=== PATIENT | female | born 1965 | race Caucasian/White ===

== ENCOUNTER 2017-02-08 11:06 | Emergency (ER) | payer MEDICAID ==
[2017-02-08 11:37] VITALS: TEMP 98.6; O2SAT 94
--- NOTE | 2017-02-08 12:31 | EDPHY ---
H & P Time Seen by Provider: 02/08/17 12:01 HPI/ROS: CHIEF COMPLAINT: Right lateral abdominal pain HISTORY OF PRESENT ILLNESS: Patient is a 51-year-old female with a history of cholecystectomy who presents to the emergency department with right lateral abdominal pain. Her pain is moderate to severe. It is "sharp and stabbing." Pain has progressively worsened over the past week. She describes it as worse with movement, twisting or bearing down for bowel movement. Her pain does not radiate. She has noticed no rash. No fevers or chills. No dysuria or frequency. No nausea or vomiting. REVIEW OF SYSTEMS: My complete review of systems is negative except as mentioned in the HPI. Past Medical/Surgical History: Includes GERD, hypertension, hypothyroidism, "fatty liver", anxiety, depression Past surgical history: Includes cholecystectomy, Social history: The patient smokes and uses THC will. She denies alcohol use. The patient is on extended Depo Smoking Status: Current every day smoker Physical Exam: Vitals noted GENERAL: Well-appearing, in no acute distress, alert. HEENT: Eyes normal to inspection, normal pharynx, no signs of dehydration. NECK: No thyromegaly, no lymphadenopathy, supple. RESPIRATORY: Clear to auscultation bilaterally, no rales, rhonchi or wheezing. CVS: Regular rate and rhythm, no rubs, murmurs, or gallops. ABDOMEN: Soft, nondistended, no organomegaly. The patient has a right lateral abdominal wall tenderness to palpation. On exam when she sits up it appears to be worse with movement. No visible rash on the abdomen. BACK: Normal to inspection, no CVA tenderness. SKIN: Normal color, no rash, warm, dry. No pallor. EXTREMITIES: No pedal edema, no calf tenderness, no Homans sign or cords, no joint swelling. NEURO/PSYCH: Alert and oriented x3, normal mood and affect, normal motor sensory exam. Constitutional: Initial Vital Signs Temperature (C) 37 C 02/08/17 11:34 Heart Rate 104 H 02/08/17 11:34 Respiratory Rate 16 02/08/17 11:34 Blood Pressure 138/85 H 02/08/17 11:34 O2 Sat (%) 94 02/08/17 11:34 O2 Delivery Mode Room Air Allergies/Adverse Reactions: codeine Allergy (Verified 02/05/15 21:00) etodolac [From Lodine] Allergy (Verified 11/29/14 21:00) Home Medications: Medication Instructions Recorded Benazepril HCl 11/29/14 Citalopram Hydrobromide [Celexa] 11/29/14 Clonazepam 11/29/14 Esomeprazole Magnesium [Nexium] 5 mg PO 11/29/14 Hydrochlorothiazide [HCTZ (RX)] 11/29/14 Levothyroxine [Synthroid 25 mcg 11/29/14 (*)] oxyCODONE/APAP 5/325 [Percocet 1 - 2 tab PO Q4H PRN #20 tab 11/29/14 5/325 (RX)] Cyclobenzaprine [Flexeril] 10 mg PO TID #15 tab 02/08/17 Dicyclomine 02/08/17 Esomeprazole Sodium 02/08/17 oxyCODONE/APAP 5/325 [Percocet 1 - 2 tab PO Q4PRN PRN #11 tab 02/08/17 5/325 (*)] Medical Decision Making - Diagnostics Imaging Results: Imaging Impressions Abdomen CT 02/08/17 12:32 Impression: 1. Status post cholecystectomy. 2. Hepatomegaly with diffuse steatosis. 3. Nonobstructive right nephrolithiasis. 4. Normal appearance of the appendix. 5. Hypodense fullness of the cervix. Correlation with a Pap smear is suggested, and if indicated, sonography may also be of benefit. Findings and recommendations were discussed with PATRICIA NICHOLE MD at 13:51 , on 02/08/2017. ED Course/Re-evaluation: In the emergency department I discussed possible etiologies with the patient. IV was placed. Laboratory studies were ordered. Due the patient's significant tenderness on exam is CT scan was ordered. Patient did have questions regarding appendicitis. Patient was given morphine 6 mg IV for pain control. Patient has an allergy to Etolodac. Patient would prefer not to receive morphine. I discussed allergy with Etolodac. However, the patient states that she has had IV ibuprofen previously. She consents to taking Toradol. I reviewed the patient's laboratory studies. Of note she had a mildly elevated white count of 10.22. Her creatinine chemistry panel unremarkable. Her LFTs were normal except for mildly elevated alk-phos of 134. Her UA was negative. 1350: Abdomen pelvis CT. Please refer the dictated report by Dr. Cisco Khan. There is a normal appearing appendix. The gallbladder is removed. There is no duct dilatation. No other signs of abnormality. No abdominal wall abnormality. Patient has a fullness of her cervix. The radiologist recommends a Pap smear. I rechecked the patient. Her pain had improved with the medication. I discussed the findings of her laboratory studies and CT imaging. I discussed the plan with the patient. She will follow up with her mud jack operator. She was given both pain medication and muscle relaxer. She will return with worsening symptoms. Differential Diagnosis: My differential includes but is not limited to appendicitis, small-bowel obstruction, perforation, ovarian cyst, ovarian torsion, zoster, musculoskeletal strain, urinary tract infection, pyelonephritis Patient's symptoms seem to be consistent with muscular oral wall discomfort. She will be given pain medication and muscle relaxer. Her imaging did not reveal the reason for her discomfort. - Data Points Laboratory Results: Laboratory Results 02/08/17 11:45 02/08/17 11:45 02/08/17 02/08/17 02/08/17 11:45 11:45 11:45 WBC RBC Hgb Hct MCV MCH MCHC RDW Plt Count MPV Neut % (Auto) Lymph % (Auto) [place] % (Auto) Eos % (Auto) Baso % (Auto) Nucleat RBC Rel Count Absolute Neuts (auto) Absolute Lymphs (auto) Absolute Monos (auto) Absolute Eos (auto) Absolute Basos (auto) Absolute Nucleated RBC Immature Gran % Immature Gran # PT INR APTT Sodium 139 mEq/L mEq/L (134-144) Potassium 4.6 mEq/L mEq/L (3.5-5.2) Chloride 105 mEq/L mEq/L (97-110) Carbon Dioxide 24 mEq/l mEq/l (22-31) Anion Gap 10 mEq/L mEq/L (8-16) BUN 14 mg/dL mg/dL (7-23) Creatinine 0.7 mg/dL mg/dL (0.6-1.0) Estimated GFR > 60 Glucose 84 mg/dL mg/dL (70-100) Calcium 9.8 mg/dL mg/dL (8.5-10.4) Total Bilirubin 0.6 mg/dL mg/dL (0.1-1.4) Conjugated Bilirubin 0.5 mg/dL mg/dL (0.0-0.5) Unconjugated Bilirubin 0.1 mg/dL mg/dL (0.0-1.1) AST 47 IU/L H IU/L (14-46) ALT 51 IU/L IU/L (9-52) Alkaline Phosphatase 134 IU/L H IU/L (38-126) Total Protein 7.4 g/dL g/dL (6.3-8.2) Albumin 4.3 g/dL g/dL (3.5-5.0) Lipase 125.0 IU/L IU/L (23-300) Beta HCG, Qual NEGATIVE Urine Color YELLOW Urine Appearance CLEAR Urine pH 8.0 H (5.0-7.5) Ur Specific [place] 1.008 (1.002-1.030) Urine Protein NEGATIVE (NEGATIVE) Urine Ketones NEGATIVE (NEGATIVE) Urine Blood NEGATIVE (NEGATIVE) Urine Nitrate NEGATIVE (NEGATIVE) Urine Bilirubin NEGATIVE (NEGATIVE) Urine Urobilinogen NEGATIVE EU EU (0.2-1.0) Ur Leukocyte Esterase NEGATIVE (NEGATIVE) Ur Culture Indicated? NOT INDICATED (NI) Urine Glucose NEGATIVE (NEGATIVE) 02/08/17 02/08/17 11:45 11:45 WBC 10.22 10^3/uL H 10^3/uL (3.80-9.50) RBC 5.48 10^6/uL H 10^6/uL (4.18-5.33) Hgb 15.5 g/dL g/dL (12.6-16.3) Hct 45.2 % % (38.0-47.0) MCV 82.5 fL fL (81.5-99.8) MCH 28.3 pg pg (27.9-34.1) MCHC 34.3 g/dL g/dL (32.4-36.7) RDW 15.6 % H % (11.5-15.2) Plt Count 337 10^3/uL 10^3/uL (150-400) MPV 10.3 fL fL (8.7-11.7) Neut % (Auto) 64.9 % % (39.3-74.2) Lymph % (Auto) 24.9 % % (15.0-45.0) [place] % (Auto) 7.8 % % (4.5-13.0) Eos % (Auto) 1.4 % % (0.6-7.6) Baso % (Auto) 0.5 % % (0.3-1.7) Nucleat RBC Rel Count 0.0 % % (0.0-0.2) Absolute Neuts (auto) 6.64 10^3/uL H 10^3/uL (1.70-6.50) Absolute Lymphs (auto) 2.54 10^3/uL 10^3/uL (1.00-3.00) Absolute Monos (auto) 0.80 10^3/uL 10^3/uL (0.30-0.80) Absolute Eos (auto) 0.14 10^3/uL 10^3/uL (0.03-0.40) Absolute Basos (auto) 0.05 10^3/uL 10^3/uL (0.02-0.10) Absolute Nucleated RBC 0.00 10^3/uL 10^3/uL (0-0.01) Immature Gran % 0.5 % % (0.0-1.1) Immature Gran # 0.05 10^3/uL 10^3/uL (0.00-0.10) PT 12.7 SEC SEC (12.0-15.0) INR 0.96 (0.83-1.16) APTT 27.5 SEC SEC (23.0-38.0) Sodium Potassium Chloride Carbon Dioxide Anion Gap BUN Creatinine Estimated GFR Glucose Calcium Total Bilirubin Conjugated Bilirubin Unconjugated Bilirubin AST ALT Alkaline Phosphatase Total Protein Albumin Lipase Beta HCG, Qual Urine Color Urine Appearance Urine pH Ur Specific [place] Urine Protein Urine Ketones Urine Blood Urine Nitrate Urine Bilirubin Urine Urobilinogen Ur Leukocyte Esterase Ur Culture Indicated? Urine Glucose Medications Given: Discontinued Medications Sodium Chloride (Ns) 500 mls @ 0 mls/hr IV ONCE ONE PRN Reason: Wide Open Stop: 02/08/17 12:33 Last Admin: 02/08/17 12:56 Dose: 500 mls Ketorolac Tromethamine (Toradol) 30 mg IVP EDNOW ONE Stop: 02/08/17 12:42 Last Admin: 02/08/17 12:56 Dose: 30 mg Morphine Sulfate (Morphine) 6 mg IVP EDNOW ONE Stop: 02/08/17 12:35 Last Admin: 02/08/17 12:55 Dose: Not Given Ondansetron HCl (Zofran) 4 mg IVP EDNOW ONE Stop: 02/08/17 12:35 Last Admin: 02/08/17 12:56 Dose: 4 mg Departure - Departure Disposition: Home, Routine, Self-Care Clinical Impression: Abdominal pain Qualifiers: Abdominal location: unspecified location Qualified Code(s): R10.9 - Unspecified abdominal pain Condition: Good Instructions: Abdominal Pain (ED), Muscle Strain (ED) Additional Instructions: Your CT scan was unremarkable except for cervical fullness. This is not related to pain. You need close follow-up with your mud jack operator to perform a Pap smear and further evaluation. Return with increasing pain, fever, vomiting or any other concerns. Referrals: [facility] [Other] - 5-7 days, call for appt. Britt Landeros DO [Doctor of Osteopathy] - As per Instructions Prescriptions: Cyclobenzaprine [Flexeril] 10 mg PO TID #15 tab oxyCODONE/APAP 5/325 [Percocet 5/325 (*)] 1 - 2 tab PO Q4PRN PRN #11 tab PRN Reason: For Moderate To Severe Pain
[2017-02-08] MEDS ORDERED: NS 500 ML IV ONE (12:32)
[2017-02-08] MEDS ORDERED: ONDANSETRON 4 MG/2 ML VIAL IVP ONE (12:34)
[2017-02-08] MEDS ORDERED: KETOROLAC 30 MG/1 ML SDV IVP ONE (12:41)
[2017-02-08 12:43] LABS: % IMMATURE GRANULYOCYTES 0.5 % (0.0-1.1); ABSOLUTE IMMATURE GRANULOCYTES 0.05 10^3/uL (0.00-0.10); ADD DIFF? NO; ADD MORPH? NO; ADD SCAN? NO; ATYPICAL LYMPHOCYTE FLAG 0 (0-99); FRAGMENT RBC FLAG 0 (0-99); HEMATOCRIT 45.2 % (38.0-47.0); HEMOGLOBIN 15.5 g/dL (12.6-16.3); LEFT SHIFT FLG 0 (0-99); LIPEMIA HEMOLYSIS FLAG 90 (0-99); MEAN CELL HEMOGLOBIN 28.3 pg (27.9-34.1); MEAN CELL HEMOGLOBIN CONCENTR. 34.3 g/dL (32.4-36.7); MEAN CELL VOLUME 82.5 fL (81.5-99.8); MEAN PLATELET VOLUME 10.3 fL (8.7-11.7); PLATELET CLUMPS FLAG 0 (0-99); PLATELET COUNT 337 10^3/uL (150-400); RED BLOOD CELL COUNT 5.48 10^6/uL (4.18-5.33); RED CELL DISTRIBUTION WIDTH 15.6 % (11.5-15.2)
[2017-02-08 12:44] LABS: COLOR YELLOW; LEUKOCYTE ESTERASE,URINE NEGATIVE (NEGATIVE); NITRITE,URINE NEGATIVE (NEGATIVE)
[2017-02-08 12:46] LABS: INR 0.96 (0.83-1.16); PROTIME(PATIENT) 12.7 SEC (12.0-15.0)
[2017-02-08 12:47] LABS: APTT 27.5 SEC (23.0-38.0)
[2017-02-08 12:49] LABS: ALANINE AMINOTRANSFERASE 51 IU/L (9-52); ALBUMIN 4.3 g/dL (3.5-5.0); ALKALINE PHOSPHATASE 134 IU/L (38-126); ANION GAP 10 mEq/L (8-16); ASPARTATE AMINOTRANSFERASE 47 IU/L (14-46); BILIRUBIN,TOTAL 0.6 mg/dL (0.1-1.4); BILIRUBIN-CONJUGATED 0.5 mg/dL (0.0-0.5); BILIRUBIN-UNCONJUGATED 0.1 mg/dL (0.0-1.1); CALCIUM 9.8 mg/dL (8.5-10.4); CARBON DIOXIDE 24 mEq/l (22-31); CHLORIDE 105 mEq/L (97-110); CREATININE 0.7 mg/dL (0.6-1.0); GLOMERULAR FILTRATION RATE > 60; GLUCOSE 84 mg/dL (70-100); POTASSIUM 4.6 mEq/L (3.5-5.2); SODIUM 139 mEq/L (134-144); TOTAL PROTEIN 7.4 g/dL (6.3-8.2)
[2017-02-08] MEDS ORDERED: IOPAMIDOL (ISOVUE-300) 100 ML BTL IV ONE (13:12)
[2017-02-08 14:09] VITALS: BP 129/71; PULSE 82; RESP 20
== END 2017-02-08 14:18 | disposition home or self-care (01) ==
DX: R10.9 Unspecified abdominal pain (principal); I10 Essential (primary) hypertension; F17.200 Nicotine dependence, unspecified, uncomplicated; Z90.49 Acquired absence of other specified parts of digestive tract
CPT/HCPCS: 96374; J1885; J2405; Q9967

== ENCOUNTER → 2017-02-18 | Outpatient (CLI) | payer MEDICAID | LOC: FIMAGING 09:44 | PROVIDERS: ATTEND Midwife | DX: N89.8 Other specified noninflammatory disorders of vagina (principal); N83.201 Unspecified ovarian cyst, right side ==

== ENCOUNTER 2017-08-05 09:11 | Emergency (ER) | payer MEDICAID ==
[2017-08-05] MEDS ORDERED: IPRATROPIUM/ALBUTEROL 3 ML DEYVIAL ONE (09:41)
[2017-08-05] MEDS ORDERED: IPRATROPIUM/ALBUTEROL 3 ML DEYVIAL IH ONE (09:42)
--- NOTE | 2017-08-05 09:44 | EDPHY ---
HPI/HX/ROS/PE/MDM Narrative: CHIEF COMPLAINT: Swollen lymph nodes HPI: The patient is a 52 y/o female complaining of cough for the last 2 weeks and swollen lymph nodes onset this morning. She has a history of bronchitis and has had chest congestion and productive cough with brownish phlegm for the last 1-2 weeks. She saw a PCP at [facility] and was treated with prednisone, though she did not have a chest x-ray at that time. woke up this morning with throat swelling and "hard knots" on the side of her neck. She denies sore throat , fever, vomiting, diarrhea, abdominal pain. REVIEW OF SYSTEMS: Aside from elements discussed in the HPI, a comprehensive 10-point review of systems was reviewed and is negative. PMH: GERD, hypertension, hypothyroidism, anxiety, depression, cholecystectomy, c -section Prior medical records reviewed including ED visit 02/08/17 for abdominal pain. SOCIAL HISTORY: Smoker, PCP: [facility] PHYSICAL EXAM: General:Patient is alert, in no acute distress. ENT:Eyes are normal to inspection. ENT inspection normal. Neck: Bilateral tender cervical lymphadenopathy. Full range of motion. Respiratory:No respiratory distress. Breath sounds diminished bilaterally. Cardiovascular: Regular rate and rhythm. Strong peripheral pulses. Normal cap refill. Abdomen:The abdomen is nontender to palpation. There are no peritoneal signs. Back: Normal to inspection. No tenderness to palpation. Skin: Normal color. No rash. Warm and dry. Extremities: Normal appearance. Full range of motion. Neuro: Oriented x3. Normal motor function. Normal sensory function. ED Course: This is a 52 y/o female who presents with a 2-week history of productive cough complaining of swollen cervical lymph nodes onset this morning. She has diminished breath sounds bilateral and bilateral tender cervical adenopathy on exam. She is afebrile. Plan for IV, labs, chest x-ray, and duo neb. Chest x-ray: bronchitis CT neck: nothing acute 1342: Reassessed patient and discussed work up. She feels improved after the duo neb. She will be discharged home with z-pack and PCP referral. Return precautions give. She is comfortable with this plan. MDM: This patient presents with continued respiratory symptoms despite prednisone therapy, now with cervical lymphadeonapthy, which is odd considering she has no pharyngeal symptoms. CXR negative or pneumonia. CT-neck negative for concerning findings. I will start patient on azithro to be on the safe side. Patient not hypoxic or febrile, and is appropriate for outpatient management. - Data Points Imaging Results: Imaging Impressions Chest X-Ray 08/05/17 09:39 Impression: 1. Bronchitis/airways disease. 2. No definite pneumonia or pulmonary edema. 3. No cardiomegaly. 4. Old posttraumatic deformity distal right clavicular head. Neck CT 08/05/17 11:52 Impression: 1. No evidence of mass or lymphadenopathy within the neck. 2. Mild prominence of the adenoid tonsils bilaterally without focal abnormality. Findings discussed with Masoud Batista MD at 13:39 hour, 08/05/2017. Imaging: Discussed imaging studies w/ form building supervisor Radiologist, I viewed and interpreted images myself Laboratory Results: Laboratory Results 08/05/17 09:50 08/05/17 09:50 08/05/17 08/05/17 09:50 09:50 WBC 18.65 10^3/uL H 10^3/uL (3.80-9.50) RBC 5.37 10^6/uL H 10^6/uL (4.18-5.33) Hgb 15.8 g/dL g/dL (12.6-16.3) Hct 45.4 % % (38.0-47.0) MCV 84.5 fL fL (81.5-99.8) MCH 29.4 pg pg (27.9-34.1) MCHC 34.8 g/dL g/dL (32.4-36.7) RDW 15.8 % H % (11.5-15.2) Plt Count 344 10^3/uL 10^3/uL (150-400) MPV 9.7 fL fL (8.7-11.7) Neut % (Auto) Not Reported Lymph % (Auto) Not Reported [place] % (Auto) Not Reported Eos % (Auto) Not Reported Baso % (Auto) Not Reported Nucleat RBC Rel Count 0.0 % % (0.0-0.2) Absolute Neuts (auto) Not Reported Absolute Lymphs (auto) Not Reported Absolute Monos (auto) Not Reported Absolute Eos (auto) Not Reported Absolute Basos (auto) Not Reported Absolute Nucleated RBC 0.00 10^3/uL 10^3/uL (0-0.01) Immature Gran % Not Reported Seg Neutrophils % 72 % % Lymphocytes % 22 % % Monocytes % 4 % % Eosinophils % 1 % % Basophils % 1 % % Immature Gran # Not Reported Absolute Seg Neuts 13.43 10^/uL H 10^/uL (1.70-6.50) Absolute Lymphocytes 4.10 10^3/uL H 10^3/uL (1.00-3.00) Absolute Monocytes 0.75 10^3/uL 10^3/uL (0.30-0.80) Absolute Eosinophils 0.19 10^3/uL 10^3/uL (0.03-0.40) Absolute Basophils 0.19 10^3/uL H 10^3/uL (0.02-0.10) Platelet Estimate ADEQUATE (ADEQ) Polychromasia 1+ H Sodium 141 mEq/L mEq/L (134-144) Potassium 4.2 mEq/L mEq/L (3.5-5.2) Chloride 107 mEq/L mEq/L (97-110) Carbon Dioxide 22 mEq/l mEq/l (22-31) Anion Gap 12 mEq/L mEq/L (8-16) BUN 16 mg/dL mg/dL (7-23) Creatinine 0.7 mg/dL mg/dL (0.6-1.0) Estimated GFR > 60 Glucose 105 mg/dL H mg/dL (70-100) Calcium 9.9 mg/dL mg/dL (8.5-10.4) Troponin I < 0.012 ng/mL ng/mL (0.000-0.034) Medications Given: Discontinued Medications Albuterol/Ipratropium (Duoneb) 3 ml EDNOW ONE Stop: 08/05/17 09:43 Last Admin: 08/05/17 09:45 Dose: 3 ml General Time Seen by Provider: 08/05/17 09:25 Initial Vital Signs: Initial Vital Signs Temperature (C) 37 C 08/05/17 09:19 Heart Rate 95 08/05/17 09:19 Respiratory Rate 20 08/05/17 09:19 Blood Pressure 125/86 H 08/05/17 09:19 O2 Sat (%) 94 08/05/17 09:19 O2 Delivery Mode Room Air Allergies/Adverse Reactions: codeine Allergy (Verified 08/05/17 09:18) etodolac [From Lodine] Allergy (Verified 08/05/17 09:18) Home Medications: Medication Instructions Recorded Benazepril HCl 11/29/14 Citalopram Hydrobromide [Celexa] 11/29/14 Clonazepam 11/29/14 Esomeprazole Magnesium [Nexium] 5 mg PO 11/29/14 Hydrochlorothiazide [HCTZ (RX)] 11/29/14 Levothyroxine [Synthroid 25 mcg 11/29/14 (*)] Cyclobenzaprine [Flexeril] 10 mg PO TID #15 tab 02/08/17 Dicyclomine 02/08/17 Esomeprazole Sodium 02/08/17 AZITHROMYCIN [Z-PACK] 250 mg PO DAILY 5 Days packet 08/05/17 Departure - Departure Disposition: Home, Routine, Self-Care Clinical Impression: Bronchitis Condition: Good Instructions: Azithromycin (By mouth), Acute Bronchitis (ED) Additional Instructions: 1. Take azithromycin as prescribed. Be sure to complete the entire prescription. 2. Use Tylenol and ibuprofen as needed for pain or fever. 3. Follow up with your primary care provider for unimproved symptoms over the next week. 4. Return to the ED for inability to swallow, difficulty breathing, or other worsening of condition. Referrals: [facility],. [Clinic] - As per Instructions Prescriptions: AZITHROMYCIN [Z-PACK] 250 mg PO DAILY 5 Days packet Report Scribed for: Masoud Batista Report Scribed by: Jody Duff Date of Report: 08/05/17 Time of Report: 09:32 Physician Review and Approval Statement: Portions of this note were transcribed by an ED scribe. I personally performed the history, physical exam, and medical decision making; and confirm the accuracy of the information in the transcribed note.
[2017-08-05 10:01] LABS: ADD DIFF? YES; ADD MORPH? NO; ADD SCAN? NO; ATYPICAL LYMPHOCYTE FLAG 0 (0-99); FRAGMENT RBC FLAG 0 (0-99); HEMATOCRIT 45.4 % (38.0-47.0); HEMOGLOBIN 15.8 g/dL (12.6-16.3); LEFT SHIFT FLG 10 (0-99); LIPEMIA HEMOLYSIS FLAG 90 (0-99); MEAN CELL HEMOGLOBIN 29.4 pg (27.9-34.1); MEAN CELL HEMOGLOBIN CONCENTR. 34.8 g/dL (32.4-36.7); MEAN CELL VOLUME 84.5 fL (81.5-99.8); MEAN PLATELET VOLUME 9.7 fL (8.7-11.7); PLATELET CLUMPS FLAG 10 (0-99); PLATELET COUNT 344 10^3/uL (150-400); RED BLOOD CELL COUNT 5.37 10^6/uL (4.18-5.33); RED CELL DISTRIBUTION WIDTH 15.8 % (11.5-15.2)
[2017-08-05 10:31] LABS: PLATELET ESTIMATE ADEQUATE (ADEQ); POLYCHROMASIA 1+
[2017-08-05 10:49] LABS: ANION GAP 12 mEq/L (8-16); CALCIUM 9.9 mg/dL (8.5-10.4); CARBON DIOXIDE 22 mEq/l (22-31); CHLORIDE 107 mEq/L (97-110); CREATININE 0.7 mg/dL (0.6-1.0); GLOMERULAR FILTRATION RATE > 60; GLUCOSE 105 mg/dL (70-100); POTASSIUM 4.2 mEq/L (3.5-5.2); SODIUM 141 mEq/L (134-144)
[2017-08-05 11:00] LABS: TROPONIN I < 0.012 ng/mL (0.000-0.034)
[2017-08-05 12:11] VITALS: BP 123/70; PULSE 83; RESP 16; O2SAT 96
[2017-08-05] MEDS ORDERED: IOPAMIDOL (ISOVUE-300) 100 ML BTL ONE (12:26)
[2017-08-05 13:09] VITALS: TEMP 97.9
== END 2017-08-05 14:22 | disposition home or self-care (01) ==
DX: J20.9 Acute bronchitis, unspecified (principal); I10 Essential (primary) hypertension; F17.200 Nicotine dependence, unspecified, uncomplicated
CPT/HCPCS: Q9967

== ENCOUNTER → 2017-10-27 | Outpatient (CLI) | payer MEDICAID | LOC: FIMAGING 10:48 | PROVIDERS: ATTEND Midwife | DX: Z12.31 Encounter for screening mammogram for malignant neoplasm of breast (principal) ==

== ENCOUNTER 2018-06-24 20:36 | Emergency (ER) | payer MEDICAID ==
--- NOTE | 2018-06-24 20:49 | EDPHY ---
H & P Time Seen by Provider: 06/24/18 20:48 HPI/ROS: CHIEF COMPLAINT: Groin pain HISTORY OF PRESENT ILLNESS: This is a 52-year-old female presents emergency department reporting that she has had intermittent groin pain for the last several months. Patient reports she develops the pain low in her right inguinal canal and feels like something is stuck there. Pain is worse if she steps onto her right foot. It is uncomfortable when she tries to flex her hip. She typically has been taking ibuprofen for this with good relief. Today, the patient again developed this groin pain and states that his been present throughout the whole day. It has been uncomfortable for her to move out, uncomfortable to get in and out of the car, or to flex at her hip lift her leg. She denies any nausea or vomiting. No back pain. No trauma. No fever, chills, chest pain, shortness of breath, palpitations, vomiting, diarrhea, urinary complaints, headache, lightheadedness. REVIEW OF SYSTEMS: A comprehensive 10 system review of systems was reviewed and is otherwise negative aside from elements mentioned in the history of present illness. PAST MEDICAL HISTORY: Endometrial ablation, history of ovarian cyst. Hypothyroid. SOCIAL HISTORY: Here with family. Current smoker. VITAL SIGNS: see nurse's notes. GENERAL: Well-developed, well-nourished, complaining of pain. HEENT: Normal, no discharge or icterus, moist mucous membranes. Neck: supple, FROM. LUNGS: Clear to auscultation bilaterally, no wheezes, rhonchi or rales. CARDIAC: Regular rate and rhythm, no rubs, murmurs or gallops. ABDOMEN: Soft, no abdominal tenderness. Moderately obese. No guarding or rebound. GROIN: Tenderness along the inguinal canal on the right. Some tenderness and fullness is appreciated in the right side of the mons and labia. No warmth, no erythema. No definitive bulge appreciated. Patient has discomfort with hip flexion as well as with internal and external rotation of the right hip. No adenopathy appreciated. Pelvic: Bimanual exam was performed with the patient in the bed. No specific tenderness along the right vaginal wall. No blood. No evidence vaginal prolapse. BACK: No CVA tenderness. No vertebral tenderness. EXTREMITIES: No edema, FROM. NEURO: Alert and oriented, grossly nonfocal. SKIN: Warm and dry, no rash. Smoking Status: Current every day smoker Constitutional: Initial Vital Signs Temperature (C) 37.2 C 06/24/18 20:49 Heart Rate 105 H 06/24/18 20:49 Respiratory Rate 18 06/24/18 20:49 Blood Pressure 135/92 H 06/24/18 20:49 O2 Sat (%) 94 06/24/18 20:49 O2 Delivery Mode Room Air Allergies/Adverse Reactions: codeine Allergy (Verified 08/05/17 09:18) etodolac [From Lodine] Allergy (Verified 08/05/17 09:18) Home Medications: Medication Instructions Recorded Benazepril HCl 11/29/14 Citalopram Hydrobromide [Celexa] 11/29/14 Clonazepam 11/29/14 Hydrochlorothiazide [HCTZ (RX)] 11/29/14 Levothyroxine [Synthroid 25 mcg 11/29/14 (*)] Dicyclomine 02/08/17 Hydrocodone/APAP 5/325 [[place] 1 tab PO Q6H PRN #10 tab 06/24/18 5/325 (RX)] Pantoprazole Sodium 06/24/18 Medical Decision Making - Diagnostics Imaging Results: Pelvis CT: Impression: Negative for hernia or other abnormality. There is a mildly prominent adipose tissue involving the labia. Results called and discussed with Lila Wills MD on 06/24/2018 at 22:05. Dictated By: Ralph Buckley MD Imaging: Discussed imaging studies w/ call center coordinator Radiologist ED Course/Re-evaluation: Discussed radiographic evaluation with Dr. Buckley. Recommend CT pelvis with IV contrast. Patient's creatinine is normal. CT scan called to me as demonstrating no fluid collection, no bowel tracking into the labia, no identifiable hernia, no edema, no cyst. Will treat the patient for potential hip flexor strain and as patient to follow up with her primary care physician. Patient was given a short course of hydrocodone to use as needed for severe pain. Precautions regarding fevers, vomiting, worsening pain, erythema on the skin, or other concerns were discussed. Differential Diagnosis: Differential diagnoses for the patient's symptom complex was considered including but not limited to muscle strain, occult trauma, hernia, vaginal prolapse, muscle tear. - Data Points Medications Given: Discontinued Medications Hydrocodone Bitart/Acetaminophen ([place] 5/325mg Prepack#6) 1 btl TAKEHOME EDNOW ONE Stop: 06/24/18 22:24 Last Admin: 06/24/18 22:32 Dose: 1 btl Hydromorphone HCl (Dilaudid) 0.5 mg IVP EDNOW ONE Stop: 06/24/18 21:07 Last Admin: 06/24/18 21:42 Dose: 0.5 mg Point of Care Test Results: CBC CBC Collection Date 06/24/18 CBC Collection Time 21:15 WBC 10.1 RBC 5.08 HGB 15.0 HCT 45.1 PLT 274 Neut # 6.7 Neut 67.0 LYMPH # 2.8 LYMPH 27.5 Other WBC # 0.6 Other WBC 5.5 MCV 88.8 Chemistry 06/24/18 21:19 POC Sodium 141 mEq/L mEq/L (135-145) POC Potassium 3.6 mEq/L mEq/L (3.3-5.0) POC Chloride 105 mEq/L mEq/L (97-110) POC BUN 15 mg/dL mg/dL (7-23) POC Creatinine 0.6 mg/dL mg/dL (0.6-1.0) POC Glucose 145 mg/dL H mg/dL (70-100) ISTAT H&H 06/24/18 21:19 POC Hgb 14.6 gm/dL gm/dL (12.6-16.3) POC Hct 43 % % (38-47) Departure - Departure Disposition: Home, Routine, Self-Care Clinical Impression: Right groin pain Condition: Good Instructions: Hydrocodone/Acetaminophen (By mouth), Groin Pain (ED) Additional Instructions: Please follow up with your primary care physician or with Dr. Castaneda early next week for further evaluation. Please take ibuprofen 600 mg every 6-8 hours as needed for pain. If you take this regularly will give some anti-inflammatory effects. If you need to you may also take Tylenol 650-1000 mg every 4-6 hours. Do not take more than 3000 mg of Tylenol in a 24 hr period. You been given prepack of hydrocodone. You may use this as needed for more severe pain. Please note that it does contain Tylenol. Apply ice to the area of most tenderness for 20-30 minutes every 2-3 hours over the next several days. This will help with the discomfort. Observe for any redness, warmth, swelling, fevers, vomiting, or other concerns. Return to the emergency department if you develops any of these symptoms or if you have other concerns. Referrals: [facility] [Other] - As per Instructions Sanaz Castaneda MD [Medical Doctor] - As per Instructions (Follow up with Dr. Castaneda as soon as possible for re-evaluation.) Prescriptions: Hydrocodone/APAP 5/325 [[place] 5/325 (RX)] 1 tab PO Q6H PRN #10 tab PRN Reason: Pain
[2018-06-24] MEDS ORDERED: HYDROmorphONE/DILAUDID 2 MG/ML INJ IVP ONE (21:06)
[2018-06-24] MEDS ORDERED: IOPAMIDOL (ISOVUE-300) 100 ML BTL ONE (21:19)
[2018-06-24] MEDS ORDERED: HYDROCOD/APAP 5/325 PREPACK#6 BTL TAKEHOME ONE (22:23)
[2018-06-24 22:39] VITALS: BP 119/78
== END 2018-06-24 22:35 | disposition home or self-care (01) ==
LOC: CED 20:36
DX: R10.30 Lower abdominal pain, unspecified (principal); F17.200 Nicotine dependence, unspecified, uncomplicated
CPT/HCPCS: 72193-PO; 82435-PO; 82565-PO; 82947-PO; 84132-PO; 84295-PO; 84520-PO; 85014-PO; 96374; J1170; Q9967

== ENCOUNTER 2018-07-15 21:01 | Emergency (ER) | payer MEDICAID ==
--- NOTE | 2018-07-15 21:40 | EDPHY ---
H & P Stated Complaint: abdominal pain 3 days Time Seen by Provider: 07/15/18 21:10 HPI/ROS: CHIEF COMPLAINT: Abdominal pain and bloating HISTORY OF PRESENT ILLNESS: This is a 53-year-old female who was seen here approximately 3 weeks ago for different problem. At that time she had right inguinal pain. Pelvic CT scan was negative for hernia. She has since seen her OBGYN follow-up an ultrasound performed but does not know those results. This was performed yesterday. She is here today instead for a new problem. Beginning Wednesday, 3 days ago she started noting some abdominal distress. It was that of bilateral mid abdominal distention. It was an achy type feeling and beginning the next day, , yesterday she had the pain such that was more diffuse but also having the persistent sense of distention. Finally, today pain has been more intense, localized chiefly to the left mid and left upper abdomen as well as all over. There is a vague sense of something wrong in the back but no nay flank pain. Also, today's when she developed some anorexia, along with his moderate pain and worsening the pain in the left upper quadrant. She did have a small bowel movement today but has not found herself straining at all lately. She is wondering if she might be simply constipated. At this point in time when she shows me with the pain as she draws her hands over bilateral upper quadrants and then into the left upper and mid quadrant. The pain is not been bad enough that she is bothered to take any Tylenol or ibuprofen. She has never had this pain before. There has been no fevers or chills. She has not had no nausea vomiting and diarrhea. I reviewed some records from January of 2017 at which time she had a CT scan of the abdomen. She notes that she has never had problems substance abuse nor family history of such. REVIEW OF SYSTEMS: Constitutional: No fever, no chills. Eyes: No discharge ENT: No sore throat. Cardiovascular: No chest pain, no palpitations. Respiratory: No cough, shortness of breath, or wheezing. Gastrointestinal: See above Genitourinary: See above Musculoskeletal: No back pain. Skin: No rashes. Neurological: No headache. A 10 system review of systems was performed and is negative except for the noted findings in the HPI. Source: Patient Exam Limitations: No limitations - Personal History LMP (Females 10-55): Post Menopausal - Medical/Surgical History Hx Asthma: No Hx Chronic Respiratory Disease: No Hx Diabetes: No Hx Cardiac Disease: No Hx Renal Disease: No Hx Cirrhosis: No Hx Alcoholism: No Hx HIV/AIDS: No Hx Splenectomy or Spleen Trauma: No Other PMH: "fatty liver", gallbladder , , Gerd, htn, hypothyroid - Family History Significant Family History: No pertinent family hx - Social History Smoking Status: Current every day smoker Alcohol Use: None Drug Use: None - Physical Exam Exam: General Appearance: Alert, no distress. Afebrile, though time she is becoming flushed. No diaphoresis.. Normal phonation. No respiratory distress. Apple physique Eyes: Pupils equal and round no pallor or injection. No icterus ENT, Mouth: Mucous membranes moist Pharynx without erythema or exudate. TM Clear. Neck: No adenopathy. Supple. No JVD. Trachea in midline. Respiratory: There are no retractions, lungs are clear to auscultation. Cardiovascular: Regular rate and rhythm, no murmur Abdomen: The abdomen is soft. There is tenderness present particularly in the hypogastrium as well as the left mid quadrant. There is no right lower quadrant tenderness whatsoever. No percussion sensitivity. Femoral pulses equal. Rectal: Heme-negative brown stool, essentially minimal stool in the vault. Neurological: Ox3. No motor weakness. Sensation intact. Gait nl. Skin: Warm and dry, no rashes. Musculoskeletal: No joint swelling. Extremities: No edema. Homans sign negative. No cords. Psychiatric: Normal affect. Patient is oriented X 3. There is no agitation Constitutional: Initial Vital Signs Temperature (C) 36.9 C 07/15/18 21:10 Heart Rate 92 07/15/18 21:10 Respiratory Rate 16 07/15/18 21:10 Blood Pressure 122/88 H 07/15/18 21:10 O2 Sat (%) 96 07/15/18 21:10 O2 Delivery Mode Room Air Allergies/Adverse Reactions: codeine Allergy (Verified 07/15/18 21:13) etodolac [From Lodine] Allergy (Verified 07/15/18 21:13) Home Medications: Medication Instructions Recorded Benazepril HCl 11/29/14 Citalopram Hydrobromide [Celexa] 11/29/14 Clonazepam 11/29/14 Hydrochlorothiazide [HCTZ (RX)] 11/29/14 Levothyroxine [Synthroid 25 mcg 11/29/14 (*)] Pantoprazole Sodium 06/24/18 Medical Decision Making - Diagnostics Imaging Results: Imaging Impressions Abdomen CT 07/15/18 22:21 Impression: 1. Prior cholecystectomy. 2. No CT evidence of appendicitis, abscess or bowel obstruction. 3. Mild hepatic steatosis. 4. Otherwise unremarkable. Findings and recommendations discussed with Emergency Department physician, Victoriano Stark MD at 23:33 hour, 07/15/2018. Final report concurs with initial preliminary interpretation. Imaging: Discussed imaging studies w/ drilling inspector Radiologist ED Course/Re-evaluation: Upon initial evaluation we talked about pain management. She seemed a little overwhelmed as she is beginning have a flushing episode. However my exam of note is that her temperature is 37.2 orally. She would like to forego anything for pain at this time and will talk with the nurse if she needs something. We then talked about management. The concern was given the fact that she has had [address] scans last 18 months of the pelvic area. However when I explained the real though minimal risks of the CT scan verses the risks of [place] antibiotic therapy in the setting of uncertain diagnosis of diverticulitis she opted instead for the CT scan. Laboratory studies will include the following: Normal urine Hypokalemia at 3.2. Creatinine now is 0.7 verses 0.6 when seen here on June 24 Ultimately, the CT scan was read as negative per the radiologist, discussed with me. I shared the results of the family. At this point though there is mild-to- moderate stool on the film, thus constipation is not a clear-cut diagnosis. However, if this pain continues 5-6 days from now would be good to know that her : Is been cleared out. Thereby she will do the following: MiraLax twice daily Mag citrate tomorrow split doses every 6 hr x2 Avoid caffeine Differential Diagnosis: Differential diagnosis includes, but is not limited to: Gastroenteritis, dehydration, diverticulitis, renal colic, kidney stones, ureterolithiasis, cholecystitis, appendicitis, gastritis, mesenteric adenitis, food poisoning, bacterial dysentery. - Data Points Laboratory Results: 09/21/18 22:35 POC Sodium 143 mEq/L mEq/L (135-145) POC Potassium 3.2 mEq/L L mEq/L (3.3-5.0) POC Chloride 103.0 mEq/L mEq/L (97-110) POC Total CO2 25 mEq/L mEq/L (22-31) POC BUN 12 mg/dL mg/dL (7-23) POC Creatinine 0.7 mg/dL mg/dL (0.6-1.0) POC Glucose 91 mg/dL mg/dL (70-100) POC Calcium 9.7 mg/dL mg/dL (8.5-10.4) Medications Given: Discontinued Medications Sodium Chloride (Ns) 1,000 mls @ 0 mls/hr IV EDNOW ONE; Wide Open PRN Reason: Protocol Stop: 07/15/18 22:22 Last Admin: 07/15/18 22:30 Dose: 1,000 mls Ketorolac Tromethamine (Toradol) 15 mg IVP EDNOW ONE Stop: 07/15/18 23:49 Last Admin: 07/16/18 00:11 Dose: 15 mg Morphine Sulfate (Morphine) 6 mg SC EDNOW ONE Stop: 07/15/18 23:34 Last Admin: 07/15/18 23:41 Dose: Not Given Point of Care Test Results: CBC CBC Collection Date 07/15/18 CBC Collection Time 21:15 WBC 9.5 RBC 5.10 HGB 15.3 HCT 44.2 PLT 273 Neut # 5.6 Neut 58.7 LYMPH # 2.9 LYMPH 30.6 Other WBC # 1.0 Other WBC 10.7 MCV 86.7 Chemistry 07/15/18 22:35 POC Sodium 143 mEq/L mEq/L (135-145) POC Potassium 3.2 mEq/L L mEq/L (3.3-5.0) POC Chloride 103.0 mEq/L mEq/L (97-110) POC Total CO2 25 mEq/L mEq/L (22-31) POC BUN 12 mg/dL mg/dL (7-23) POC Creatinine 0.7 mg/dL mg/dL (0.6-1.0) POC Glucose 91 mg/dL mg/dL (70-100) POC Calcium 9.7 mg/dL mg/dL (8.5-10.4) Urine Dip Collection Date 07/15/18 Collection Time 21:55 Specific [place] (1.002-1.030) 1.010 PH (5.0-7.5) 6.0 Leukocytes (Negative) Negative Nitrites (Negative) Negative Protein (Negative) Negative Glucose (Negative) Negative Ketones (Negative) Negative Urobilnogen (0.2-1.0 EU) 0.2 Bilirubin (Negative) Negative Blood (Negative) Negative Departure - Departure Disposition: Home, Routine, Self-Care Clinical Impression: Abdominal pain Qualifiers: Abdominal location: generalized Qualified Code(s): R10.84 - Generalized abdominal pain Condition: Good Instructions: Acute Abdominal Pain (ED) Additional Instructions: For the pain: Tylenol and Advil works well together the combination: Tylenol 650 mg and Advil 400 mg every 6 hours as needed for the pain. For the bowels: MiraLax twice daily Mag citrate: 1/2 bottle tomorrow, repeat in 6 hr if no stools Follow up with family physician in 3-4 days time. Return immediately if he develops fever. The we have a referral on this document to the on-call physician. Consider this more of a backup in case you're able to not see her physician Referrals: NONE *PRIMARY CARE P,. [Primary Care Provider] - 5-7 days, call for appt. Osmin Beard DO [Doctor of Osteopathy] - As per Instructions
[2018-07-15] MEDS ORDERED: NS 1,000 ML IV ONE (22:21)
[2018-07-15] MEDS ORDERED: IOPAMIDOL (ISOVUE-300) 100 ML BTL ONE (22:49)
[2018-07-15 23:41] VITALS: BP 128/77
[2018-07-15] MEDS ORDERED: KETOROLAC 15 MG/1 ML SDV IVP ONE (23:48)
== END 2018-07-16 00:40 | disposition home or self-care (01) ==
LOC: CED 21:01
DX: R10.9 Unspecified abdominal pain (principal); E86.9 Volume depletion, unspecified
CPT/HCPCS: 74177-PO; 80048-PO; 96374; J1885; J2270; Q9967

== ENCOUNTER → 2018-08-18 | Outpatient (CLI) | payer MEDICAID ==
[~2018-08-18] MED LIST: TETANUS, DIPHTHERIA TOX (7YR+) 0.5 ML INJ IM ONE
== END ==
LOC: CIMAGING 07:02
PROVIDERS: ATTEND Physician Assistant
DX: R10.11 Right upper quadrant pain (principal)
CPT/HCPCS: 36415-PO; 76705-PO

== ENCOUNTER → 2018-11-10 | Outpatient (CLI) | payer MEDICAID | LOC: CIMAGING 09:27 | PROVIDERS: ATTEND Obstetrics & Gynecology | DX: Z12.31 Encounter for screening mammogram for malignant neoplasm of breast (principal) ==